=== PATIENT | male | born 1965 | race Caucasian/White ===

== ENCOUNTER 2019-05-29 19:50 | Emergency (ER) | payer SELFPAY ==
--- NOTE | 2019-05-29 20:05 | ED Physician Documentation ---
Neuro Symptoms - HISTORIAN Historian: patient - HPI Stated Complaint: right facial droop Chief Complaint: Neurological Symptoms Additional Information: Patient presents to ER with right sided facial droop. Patient states his symp toms began yesterday morning around 11:00. He states he began to have right ear pain which progressed to right mouth droop and he was unable to close his right eye by the end of the day. Patient reports a family history of hypertension. Patient refuses any blood draws or injections. 182/105 was presenting blood pressure. Onset: hours (36) Timing: gradual onset Last known Well Date: 05/28/19 Last Known Well Time: 10:00 Last known Well Code/Unknown Code: Known Severity: severe - CHARACTERS OF DEFICIT New Weakness: none Altered Sensation: none Vision Problems: No Impaired Speech/ Swallowing: Yes Decreased Ability: none Cognition is Usually: alert, oriented x3 Gait is Usually: walks w/o assistance Associated Symptoms: other (right ear pain). denies: fever, headache, altered mental status - ROS MENTAL STATUS: denies: trouble swallowing CVS/Resp Upper Extremity Problem: denies: shortness of breath GI/ DYSPNEA: denies: vomiting, nausea MS/SKIN/LYMPH: denies: recent injury Neuro/Psych: denies: headache - PAST HX Past History: denies: CVA, head trauma Other History: hypertension Surgeries/Procedures: none Allergies/Adverse Reactions: Allergies Allergy/AdvReac Type Severity Reaction Status Date / Time No Known Allergies Allergy Verified 05/29/19 20:13 Home Medications: Ambulatory Orders Medication Instructions Recorded Lisinopril 20 mg PO DAILY #30 tablet 05/29/19 Valacyclovir HCl [Valacyclovir] 1,000 mg PO Q8 #30 tablet 05/29/19 predniSONE [Deltasone] 10 mg PO DIRECTED #45 tablet 05/29/19 - FAMILY HX Family History: none - SOCIAL HX Smoking History: non-smoker Alcohol Use: none Drug Use: none - VITAL SIGNS Vital Signs: Vital Signs Temp Pulse Resp BP Pulse Ox 97.5 F L 91 H 16 182/105 96 05/29/19 19:51 05/29/19 19:51 05/29/19 19:51 05/29/19 19:51 05/29/19 19:51 - REVIEWED ASSESSMENTS Nursing Assessment Reviewed: Yes Vitals Reviewed: Yes ED Results Lab/Radiology - Orders Orders: ED Orders Category Date Time Status Acyclovir [Zovirax] Med 05/29/19 20:26 Discontinued 800 mg PO NOW ONE hydrALAZINE HCL [Apresoline] Med 05/29/19 20:13 Discontinued 50 mg PO NOW ONE predniSONE [Deltasone] Med 05/29/19 20:12 Discontinued 40 mg PO NOW ONE predniSONE [Deltasone] Med 05/29/19 20:15 Discontinued 80 mg PO NOW ONE Neuro Symptoms Physical Exam - Physical Exam General Appearance: no acute distress, alert HEENT: no apparent trauma, EOM's intact, PERRL, other (right eye injected. Patient unable to close eye) Neuro/Psych: alert, oriented x3, no evidence of acute CVA, mood/affect nml Cranial Nerves: facial palsy, forehead involved. No: tongue deviation (R), tongue deviation (L) Cerebellar: nml as tested Pheripheral Exam: motor nml, sensation nml, reflexes nml. No: weakness Neck: normal inspection, supple Respiratory: no resp distress, chest non-tender, breath sounds normal CVS: reg rate & rhythm, heart sounds normal Abdomen: non-tender Skin: color nml Extremities: non-tender, normal range of motion, no evidence of injury, no edema Discharge Clincal Impression: Burton's palsy, Accelerated hypertension Prescriptions: Lisinopril 20 mg PO DAILY #30 tablet predniSONE [Deltasone] 10 mg PO DIRECTED #45 tablet Valacyclovir HCl [Valacyclovir] 1,000 mg PO Q8 #30 tablet Referrals: Primary Doctor,No [Primary Care Provider] - 2 Days Additional Instructions: 1. Take Prednisone and Valacyclovir until complete. These medications will make your facial paralysis improve faster. 2. Take Lisinopril daily for blood pressure control. High blood pressure i ncreases your chance of stroke and heart attack by 4 times 3. Wear eye patch with sleep 4. Use artificial tears every 2 hours to maintain proper hydration 5. Follow up with PCP within 1 week. 6. Return to ER for new or worsening symptoms Condition: Stable Disposition: 01 HOME, SELF-CARE Decision to Admit: NO Date of Decison to Admit: 05/29/19 Decision Time: 20:46
[2019-05-29] MEDS: predniSONE 20 MG TABLET PO ONE ×2 (20:24→20:36)
[2019-05-29] MEDS: hydrALAZINE HCL 25 MG TABLET PO ONE (20:36)
[2019-05-29] MEDS: ACYCLOVIR 200 MG CAPSULE PO ONE (20:49)
[2019-05-29 21:18] VITALS: BP 159/101
== END 2019-05-29 20:56 | disposition home or self-care (01) ==
LOC: ED 19:50
DX: G51.0 Bell's palsy (principal); I10 Essential (primary) hypertension
CPT/HCPCS: 93005; 99283; 99284